=== PATIENT | female | born 1985 | race African-American/Black ===

== ENCOUNTER 2020-04-14 09:15 | Emergency (ER) | payer MEDICAID, OTHER ==
[2020-04-14 09:26] VITALS: BP 154/97
[2020-04-14] MEDS ORDERED: CYCLOBENZAPRINE 10 MG TABLET PO STA (09:29)
--- NOTE | 2020-04-14 09:31 | ED Physician Documentation ---
History of Present Illness - Stated complaint Stated Complaint: SHOULDER/BACK PX - Chief complaint Chief Complaint: General - History obtained from History obtained from: Patient - Additonal information Additional information: The last 2 years she has had back and shoulder pain. It is worse when she is stressed and she does feel stressed now. Pain is for the most part in the back of the left shoulder but also across the upper back. It is worse with movements of the shoulder but not with movement of the neck. She says she was seen by her prior physician in [place] for this, and was diagnosed with vitamin D deficiency, but treatment of that has not helped with her back pain. She denies fevers, chills, weight loss, weakness, numbness, or tingling in the extremities or saddle area. Review of Systems Constitutional: denies: Fever, Chills Cardiac: denies: Chest pain / pressure, Palpitations Respiratory: denies: Dyspnea, Cough PD PAST MEDICAL HISTORY - Present Medications Home Medications: Ambulatory Orders Medication Instructions Recorded Confirmed Cyclobenzaprine [Flexeril] 10 mg PO TID PRN #20 tab 04/14/20 Nystatin [Nystop] 1 applic TOP BID #3 bottle 04/14/20 - Allergies Allergies/Adverse Reactions: Allergies Allergy/AdvReac Type Severity Reaction Status Date / Time azithromycin Allergy Hives Verified 04/14/20 09:27 latex Allergy Hives Verified 04/14/20 09:27 PD ED PE NORMAL - Vitals Vital signs reviewed: Yes - General General: Alert and oriented X 3, No acute distress - HEENT HEENT: PERRL, EOMI - Neck Neck: Supple, no meningeal sign, No bony TTP - Cardiac Cardiac: RRR, No murmur - Respiratory Respiratory: No respiratory distress, Clear bilaterally - Abdomen Abdomen: Non tender - Extremities Extremities: Other (Muscular tenderness near the left scapula, Painful movement of the left shoulder, but the shoulder is not tender.) - Neuro Neuro: Alert and oriented X 3, Normal speech Results - Vitals Vitals: Vital Signs - 24 hr 04/14/20 09:23 Temperature 36.0 C L Heart Rate 79 Respiratory 20 Rate Blood Pressure 154/97 H O2 Saturation 98 Oxygen O2 Source Room air PD MEDICAL DECISION MAKING - ED course ED course: 34-year-old woman presents with muscular pain of the back. She requests a work note and also something for a yeast infection under her breasts. Departure - Departure Disposition: Home, Self Care Clinical Impression: Back pain Qualifiers: Back pain location: thoracic back pain Chronicity: chronic Back pain laterality: left Qualified Code(s): M54.6 - Pain in thoracic spine; G89.29 - Other chronic pain Condition: Good Record reviewed to determine appropriate education?: Yes Instructions: ED Neck Back Pain General Follow-Up: [facility] [Provider Group] Prescriptions: Cyclobenzaprine [Flexeril] 10 mg PO TID PRN #20 tab PRN Reason: Spasms Nystatin [Nystop] 1 applic TOP BID #3 bottle Comments: Call your doctor to arrange a follow-up appointment, make the next available appointment. In the interim, return anytime if worse or if new symptoms develop. Forms: Activity restrictions
== END 2020-04-14 09:57 | disposition home or self-care (01) ==
LOC: ED 09:15
DX: M54.6 Pain in thoracic spine (principal); G89.29 Other chronic pain; M25.512 Pain in left shoulder
CPT/HCPCS: 99282; 99284; A9270